=== PATIENT | female | born 1940 | race Caucasian/White ===

== ENCOUNTER → 2016-08-25 | Outpatient (CLI) | payer MEDICARE | END | disposition home or self-care (01) | LOC: LAB.O 12:47 | PROVIDERS: ATTEND Nurse Practitioner Family | DX: N39.0 Urinary tract infection, site not specified (principal) ==

== ENCOUNTER → 2017-02-14 | Outpatient (CLI) | payer MEDICARE | END | disposition home or self-care (01) | LOC: LAB.O 13:50 | PROVIDERS: ATTEND Nurse Practitioner Family | DX: R10.9 Unspecified abdominal pain (principal) ==

== ENCOUNTER → 2017-05-08 | Outpatient (CLI) | payer OTHER | END | disposition home or self-care (01) | LOC: LAB.O 16:50 | PROVIDERS: ATTEND Nurse Practitioner Family | DX: K27.9 Peptic ulcer, site unspecified, unspecified as acute or chronic, without hemorrhage or perforation (principal) ==

== ENCOUNTER → 2017-06-06 | Outpatient (CLI) | payer OTHER | END | disposition home or self-care (01) | LOC: LAB.O 14:10 | PROVIDERS: ATTEND Psychiatry & Neurology Neurology | DX: E53.8 Deficiency of other specified B group vitamins (principal); K50.90 Crohn's disease, unspecified, without complications; E11.9 Type 2 diabetes mellitus without complications; G35 Multiple sclerosis; R53.83 Other fatigue; G61.81 Chronic inflammatory demyelinating polyneuritis; G25.89 Other specified extrapyramidal and movement disorders ==

== ENCOUNTER → 2017-06-13 | Outpatient (CLI) | payer OTHER ==
--- NOTE | 2017-06-13 15:53 | NM ---
EXAM DESCRIPTION: Hepatobiliar w/CCK CLINICAL HISTORY: 76 years, Female, ABD PAIN COMPARISON: FINDINGS: Patient injected with 8.0 mCi technetium 99m mebrofenin. Sequential images of the right upper quadrant show liver intrahepatic ducts, extrahepatic ducts gallbladder and small bowel. Patient injected with 8 ounces of ensure which contains 11 g of fat. No symptoms following the ingestion. Ejection fraction is 99%. IMPRESSION: Normal hepatobiliary scan with ejection fraction . No symptoms following ingestion of the fatty meal Electronically signed by: Jc Kramer MD 06/13/2017 3:52 PM SPECIFICATION WRITER
== END | disposition home or self-care (01) ==
LOC: NM 08:33
PROVIDERS: ATTEND General Practice
DX: R10.9 Unspecified abdominal pain (principal)
CPT/HCPCS: 78227; A9537

== ENCOUNTER 2017-10-22 13:31 | Emergency (ER) | payer OTHER, MEDICAID ==
[2017-10-22 13:48] VITALS: TEMP 97
--- NOTE | 2017-10-22 13:57 | ED.PDOC ---
History of Present Illness - General Chief Complaint: Lower Extremity Injury Stated Complaint: fall Time Seen by Provider: 10/22/17 13:35 Source: patient, RN notes reviewed, EMS notes reviewed Exam Limitations: no limitations - History of Present Illness Initial Comments: Kristan Gramajo 77 y/o female stated that she was on top of stepstool putting up wallpaper inside her bathroom she slipped on the step fell and landed on left side of head and right leg hitting the tub then had sharp headache and dull ache right leg after incident sharp wrist pain.No vomiting,no LOC,no blurry vision,remembers incident. Occurred: just prior to arrival Severity: moderate Injuries/Pain Location: head, lower extremity Reason for Fall: slipped Loss of Consciousness: no loss of consciousness Improving Factors: nothing Worsening Factors: movement Associated Symptoms (Fall): other - see hpi Allergies/Adverse Reactions: Allergies Canagliflozin [From Invokana] Allergy (Verified 10/22/17 13:57) Celecoxib [From Celebrex] Allergy (Verified 10/22/17 14:50) Metformin Allergy (Verified 10/22/17 13:57) Ofloxacin [From Floxin] Allergy (Unverified 03/16/13 21:46) Home Medications: Ambulatory Orders Acetaminophen W/ Codeine [Tylenol W/ CODEINE #3] 1 ea PO Q6HRS PRN #20 Review of Systems - Review of Systems Constitutional: States: no symptoms reported EENTM: States: no symptoms reported Respiratory: States: no symptoms reported Cardiology: States: no symptoms reported Gastrointestinal/Abdominal: States: no symptoms reported Musculoskeletal: States: see HPI Neurological: States: see HPI All other Systems: Reviewed and Negative, No Change from Baseline Past Medical History (General) - Patient Medical History Hx Hypertension: Yes Hx Diabetes: Yes Surgical History: other - hysterectomy,orif right wrist,left shoulder,foot - Vaccination History Hx Influenza Vaccination: Yes Hx Pneumococcal Vaccination: Yes - Social History Hx Tobacco Use: No Hx Alcohol Use: No Hx Physical Abuse: No Hx Emotional Abuse: No - Activities of Daily Living Grooming Ability: Independent Eating (Feeding) Ability: Independent Toileting Ability: Independent Physical Exam - Physical Exam General Appearance: Alert, Comfortable, No apparent distress, Other - tenderness left side scalp Head Injury: other - tenderness with scalp swelling [id number] left side scalp Eye Exam: bilateral normal ENT Exam: hearing grossly normal, no evidence of ENT injury, no dental injury Peripheral Pulses: radial,right: 2+, radial,left: 2+ Cardiovascular/Respiratory: regular rate, rhythm, normal peripheral pulses Gastrointestinal/Abdominal: non tender, soft, no organomegaly Back Exam: no CVA tenderness, no vertebral tenderness Extremity Exam: bony-point tenderness - right ankle Neurologic: hospital insurance representative II-XII nml as tested, no motor/sensory deficits, alert, normal mood/affect, oriented x 3 Skin Exam: normal color, warm/dry - Leonor Coma Score Best Eye Response ([place]): (4) open spontaneously Best Verbal Response ([place]): (5) oriented Best Motor Response ([place]): (6) obeys commands Progress - Progress Progress: 10/22/17 14:46 Vital Signs - 8 hr 10/22/17 13:36 Temperature 97.0 F L Pulse Rate [ 72 pulse ox] Respiratory 20 Rate Blood Pressure 158/81 [Left Arm] O2 Sat by Pulse 95 Oximetry - EKG/XRAY/CT XRAY: ankle - no fracture CT Ordered: Yes - head/c-spine-no fracture or acute abnormalities Departure - Departure Clinical Impression: Fall (on) (from) other stairs and steps, initial encounter Contusion of head Qualifiers: Encounter type: initial encounter Contusion of head detail: scalp Qualified Code(s): S00.03XA - Contusion of scalp, initial encounter Ankle pain, right Qualifiers: Chronicity: acute Qualified Code(s): M25.571 - Pain in right ankle and joints of right foot Wrist pain, acute Qualifiers: Laterality: left Qualified Code(s): M25.532 - Pain in left wrist Time of Disposition: 16:54 Disposition: Discharge to Home or Self Care Condition: Fair Departure Forms: ED Discharge - Pt. Copy, Patient Portal Self Enrollment Instructions: DI for Contusion, DI for Closed Head Injury, Head Injury ( Alternative Therapy) Referrals: Mago Perera NP [Primary Care Provider] - 1-2 Weeks Prescriptions: Acetaminophen W/ Codeine [Tylenol W/ CODEINE #3] 1 ea PO Q6HRS PRN #20 PRN Reason: Pain Home Medications: Ambulatory Orders Acetaminophen W/ Codeine [Tylenol W/ CODEINE #3] 1 ea PO Q6HRS PRN #20 Additional Instructions: Return to ER as needed
[2017-10-22] MEDS ORDERED: fentaNYL CITRATE INJ 50 MCG/ML AMP IV ONE (13:58)
--- NOTE | 2017-10-22 15:20 | RAD ---
EXAM DESCRIPTION: Ankle,Right 2 Views CLINICAL HISTORY: pain COMPARISON: None. IMPRESSION: 3 views of the right ankle shows diffuse osteopenia of the osseous structures without acute appearing fracture, focal bone destruction, or joint dislocation. The ankle mortise appears maintained. Osseous structures are diffusely osteopenic. Moderate plantar enthesophyte of the calcaneus is seen. Electronically signed by: Rigo Peter MD 10/22/2017 3:19 PM CDT
--- NOTE | 2017-10-22 15:23 | CT ---
EXAM DESCRIPTION: Head CLINICAL HISTORY: pain COMPARISON: December 18, 2013 TECHNIQUE: Noncontrast transaxial CT images of the head are obtained from base to vertex. This exam was performed according to our departmental dose-optimization program, which includes automated exposure control, adjustment of the mA and/or kV according to patient size and/or use of iterative reconstruction technique. FINDINGS: The midline structures are not displaced. Sulci are age-appropriate. There are areas of decreased attenuation in the periventricular white matter and the white matter of the centrum semiovale. There is no evidence of mass, mass-effect, hydrocephalus, or acute intracranial hemorrhage. No abnormal extra axial fluid collection is seen. Bone windows show no evidence of depressed skull fracture. Mild scalp soft tissue fat stranding in the left parietal region is seen. Moderate calcifications of the intracranial carotid arteries are seen. The visualized paranasal sinuses are unremarkable. IMPRESSION: 1. Age-appropriate atrophy with evidence of old small vessel ischemic type changes seen. 2. Small area of probable scalp soft tissue hematoma or inflammation in the left parietal region.. Electronically signed by: Rigo Peter MD 10/22/2017 3:21 PM CDT
--- NOTE | 2017-10-22 15:30 | RAD ---
EXAM DESCRIPTION: Tibia/Fibula,Right CLINICAL HISTORY: pain COMPARISON: None. IMPRESSION: 2 views of the right tibia and fibula show diffuse osteopenia of the osseous structures without evidence of acute fracture, focal bone destruction, or joint dislocation. Total knee arthroplasty is identified with cement fixation of an intramedullary component of the proximal tibia. No complicating features are identified. The femoral component is incompletely visualized on this exam of the tibia and fibula. Electronically signed by: Rigo Peter MD 10/22/2017 3:28 PM CDT
--- NOTE | 2017-10-22 15:31 | CT ---
EXAM DESCRIPTION: Cervical Spine CLINICAL HISTORY: pain COMPARISON: None Available. TECHNIQUE: Cervical CT is performed with thin-section axial imaging. MPRs are created and reviewed as well. FINDINGS: Axial bone window images reveal intact ring of C1. No abnormal widening of the atlantodens interval. No fracture of the vertebral bodies or transverse processes or posterior elements. Lung apices appear clear. No cervical mass or adenopathy. Sagittal reformatted images show normal alignment of vertebral bodies and facets. No jumped facet or facet fracture. Normal craniocervical alignment. No prevertebral soft tissue swelling. No avulsion of the spinous processes. Spondylosis: Moderately severe facet spurring is seen on the right at C4-5 and bilaterally at C5-6. Marked facet hypertrophic changes are seen on the right at C7-T1. Posterior disc/osteophyte complexes are not prominent. No significant spinal stenosis. Advanced degenerative changes are seen at the atlantodens interval. Coronal reformatted images show normal atlantooccipital and atlantoaxial alignment. The base of the dens is intact as is the body of C2. Intact lateral masses. IMPRESSION: Negative for fracture or posttraumatic subluxation. Degenerative changes as described. This exam was performed according to our departmental dose-optimization program, which includes automated exposure control, adjustment of the mA and/or kV according to patient size and/or use of iterative reconstruction technique. Total DLP equals 425.79 mGycm. Electronically signed by: Ottoniel Au MD 10/22/2017 3:30 PM CDT
--- NOTE | 2017-10-22 15:32 | RAD ---
EXAM DESCRIPTION: Hand,Right 3 Views CLINICAL HISTORY: pain COMPARISON: None. IMPRESSION: 3 views of the right hand shows diffuse osteopenia of the osseous structures. Severe joint space narrowing of the DIP joints is seen with [id number] joint line osteophytes system with osteoarthritic changes most significantly involving the second finger DIP joint. 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 Volar plate and screw fixation of the distal radius is seen. There is 3 mm of ulnar negative variance. Mild widening of the scapholunate joint is incidentally noted. Electronically signed by: Rigo Peter MD 10/22/2017 3:30 PM CDT
[2017-10-22 17:12] VITALS: O2SAT 98
[2017-10-22 17:13] VITALS: BP 130/61
== END 2017-10-22 17:05 | disposition home or self-care (01) ==
LOC: ER 13:31
DX: S00.03XA Contusion of scalp, initial encounter (principal); M25.571 Pain in right ankle and joints of right foot; M25.532 Pain in left wrist; I10 Essential (primary) hypertension; W11.XXXA Fall on and from ladder, initial encounter; Y92.002 Bathroom of unspecified non-institutional (private) residence as the place of occurrence of the external cause

== ENCOUNTER 2018-03-18 22:38 | Emergency (ER) | payer OTHER, MEDICAID ==
[2018-03-18] MEDS ORDERED: ONDANSETRON INJ 4 MG/2 ML VIAL ONE (23:09)
[2018-03-18] MEDS: ONDANSETRON INJ 4 MG/2 ML VIAL IV ONE (23:10)
--- NOTE | 2018-03-18 23:27 | ED.PDOC ---
History of Present Illness - General Chief Complaint: GI Problem Stated Complaint: n/v/d Time Seen by Provider: 03/18/18 23:23 Information Source: patient, family Exam Limitations: no limitations - History of Present Illness Initial Comments: patient comes in today for severe nausea. Patient has been dealing with difficulties with her stomach that include burning, cramping, nausea and emesis for the past 2 years. She's been diagnosed with gastroparesis and is currently under care of gastroenterology. She recently had scopes that showed no ulcerations and no masses in the colon. Patient states she was scheduled to start Reglan but has not started the medication yet this time. Today at 4 PM she started having significant nausea and just feeling horrible. Patient states she has fever of 101 on arrival to the emergency room. She's had a little bit of nasal drainage but no congestion, no cough, no shortness of breath. She did notice some dysuria and some increased hesitancy today as well. Patient's last bowel movement was 2-3 days ago that's normal for her as she alternates between constipation and diarrhea. Patient denies any emesis yet today but could not take the nausea. Patient denies chest pain or shortness of breath. Patient has a history of diabetes mellitus, hypertension, and hyperlipidemia. Abdominal Pain Onset Location: generalized abdomen Pain Radiation: no radiation Quality: mild, dull Timing/Duration: 4-6 hours Improving Factors: nothing Worsening Factors: nothing Associated Symptoms: fever/chills, nausea/vomiting Review of Systems - Review of Systems Constitutional: States: fever, malaise EENTM: States: throat swelling, other - clear nasal drainage. Denies: eye pain , nose congestion Respiratory: States: no symptoms reported. Denies: cough, short of breath, wheezing Cardiology: States: no symptoms reported. Denies: chest pain, edema, palpitations Gastrointestinal/Abdominal: States: abdominal pain, nausea. Denies: constipation, diarrhea, vomiting Genitourinary: States: dysuria, other - hesitancy Musculoskeletal: States: no symptoms reported Skin: States: no symptoms reported Neurological: States: no symptoms reported Past Medical History (General) - Patient Medical History Hx Hypertension: Yes Hx Diabetes: Yes Hx Gastroesophageal Reflux: Yes Surgical History: Hysterectomy - Vaccination History Hx Tetanus, Diphtheria Vaccination: Yes Hx Influenza Vaccination: Yes Hx Pneumococcal Vaccination: Yes - Social History Hx Tobacco Use: No Hx Alcohol Use: No Hx Substance Use: No Hx Substance Use Treatment: No Hx Depression: No Hx Physical Abuse: No Hx Emotional Abuse: No - Triage Comment ED Triage Comment: Pt reports she started having N/V/D since earlier in the evening. Pt stated she has been having trouble with her bowels. Pt was seen by a Gastro specialist today in evening. Pt is a diabetic. Pt last ate a noon. Pt has been vomiting since 4p.m. Pt reports spouse was sick with N/V about 2 weeks ago. Family Medical History - Family History Mother Family History: Unknown Physical Exam - Physical Exam General Appearance: Ill Appearing Eyes, Ears, Nose, Throat Exam: PERRL/EOMI, normal ENT inspection, TMs normal, pharynx normal Neck: non-tender, full range of motion, supple Respiratory: chest non-tender, lungs clear, normal breath sounds Cardiovascular/Chest: normal peripheral pulses, regular rate, rhythm, no edema, no gallop, no JVD, no murmur Peripheral Pulses: No deficit Gastrointestinal/Abdominal: normal bowel sounds, soft, other - TTP periumbilical area, no rebound no guarding Extremity: non-tender Neurologic: alert, oriented x 3 Progress - Progress Progress: 03/18/18 23:43 discussed with patient abnormal EKG. However, her blood pressure is running low between 120 and 70s and last EKG was in 2013 here for comparison. I am hesitant to give her nitro at this time as her symptoms have resolved with zofran and reglan and i am concerned she has acute infection. We discussed with patient and have decided to given ASA, await cardiac enzyme results, and monitor closely. 03/19/18 01:56 patient feels completely better. she was having some symptoms of UTI this morning so we have started keflex 500 mg BID x 3 days first dose here. Cardiac enzymes more than 4 hours after symptoms started were negative and she is asymptomatic. She understands that EKG was not normal and should be followed up for possible chemical stress test/cards consult. 03/19/18 01:59 - Results/Orders Results/Orders: 03/19/18 00:13 KCl 20 Meq/Ns [NS W/ KCL 20 meq/Liter] 1,000 ml IVS .QD 03/19/18 00:15 EKG STAT Laboratory Results WBC 13.0 K/mm3 (4.8-10.8) H 03/18/18 23: RBC 5.34 M/mm3 (4.20-5.40) 03/18/18: Hgb 15.0 gm/dL (12.0-16.0) 03/18/18: Hct 45.8 % (36.0-47.0) 03/18/18: MCV 85.9 fl (81.0-99.0) 03/18/18: MCH 28.2 pg (27.0-31.0) 03/18/18: MCHC 32.8 g/dL (33.0-37.0) L 03/18/18: RDW 13.8 % (11.5-14.5) 03/18/18: Plt Count 229 K/mm3 (130-400) 03/18/18: MPV 9.7 fl (7.40-10.4) 03/18/18: Absolute Neuts (auto) 11.00 K/uL (1.8-6.8) H 03/18/18: Absolute Lymphs (auto) 1.30 K/uL (1.0-3.4) 03/18/18: Absolute Monos (auto) 0.50 K/uL (0.2-0.8) 03/18/18: Absolute Eos (auto) 0.20 K/uL (0.0-0.4) 03/18/18: Absolute Basos (auto) 0.10 K/uL (0.0-0.1) 03/18/18: Neutrophils % 84.3 % (42.0-78.0) H 03/18/18: Lymphocytes % 9.8 % (20.0-50.0) L 03/18/18: Monocytes % 4.2 % (2.0-9.0) 03/18/18: Eosinophils % 1.2 % (1.0-5.0) 03/18/18: Basophils % 0.5 % (0.0-2.0) 03/18/18: Sodium 138 mmol/L (135-145) 03/18/18 23:27 Potassium 2.9 mmol/L (3.6-5.0) L 03/18/18 23: Chloride 98 mmol/L (101-111) L 03/18/18 23: Carbon Dioxide 28 mmol/L (21-31) 03/18/18 23: Anion Gap 14.9 (12-18) 03/18/18 23:27 BUN 31 mg/dL (7-18) H 03/18/18 23: Creatinine 1.20 mg/dL (0.6-1.3) 03/18/18 23: BUN/Creatinine Ratio 25.8 (10-20) H 03/18/18 23: Random Glucose 172 mg/dL (70-105) H 03/18/18: Serum Osmolality 286.3 mOsm/L (275-295) 03/18/18 23: Lactic Acid 1.6 mmol/L (0.5-2.2) 03/18/18 00:17 Calcium 9.1 mg/dL (8.4-10.2) 03/18/18 23: Total Bilirubin 0.7 mg/dL (0.2-1.0) 03/18/18 23: AST 23 IU/L (10-42) 03/18/18 23: ALT 14 IU/L (10-60) 03/18/18 23: Alkaline Phosphatase 59 IU/L (42-121) 03/18/18: Troponin I < 0.02 ng/mL (0.01-0.05) 03/18/18 23: Serum Total Protein 7.5 gm/dL (6.4-8.2) 03/18/18 23: Albumin 4.2 g/dl (3.2-5.5) 03/18/18 23: Globulin 3.3 gm/dL (2.3-3.5) 03/18/18 23: Albumin/Globulin Ratio 1.3 (1.1-1.9) 03/18/18 23: Urine Color Yellow (Yellow) 03/19/18 01:49 Urine Appearance Clear (Clear) 03/19/18 01:49 Urine pH 5.5 (4.5-7.8) 03/19/18 01:49 Ur Specific [place] 1.025 (1.005-1.030) 03/19/18 01:49 Urine Protein Negative mg/dL 03/19/18 01:49 Urine Glucose (UA) Negative mg/dL (Negative) 03/19/18 01:49 Urine Ketones Negative mg/dL (NEGATIVE) 03/19/18 01:49 Urine Blood Trace-lysed (Negative) H 03/19/18 01:49 Urine Nitrite Negative 03/19/18 01:49 Urine Bilirubin Negative (NEGATIVE) 03/19/18 01:49 Urine Urobilinogen 1.0 mg/dL (0.2-1.0) 03/19/18 01:49 Ur Leukocyte Esterase Small (Negative) H 03/19/18 01:49 Urine RBC 3-5 /hpf H 03/19/18 01:49 Urine WBC 5-10 /hpf H 03/19/18 01:49 Ur Epithelial Cells 5-10 /hpf 03/19/18 01:49 Urine Bacteria 1+ 03/19/18 01:49 - EKG/XRAY/CT EKG: Sinus, nonspecific ST T wave Chg, Abnormal Q waves Comments: flipped T waves in the lateral leads with possible lateral injury pattern Departure - Departure Clinical Impression: Gastroparesis, Hypokalemia Urinary tract infection Qualifiers: Urinary tract infection type: acute cystitis Hematuria presence: without hematuria Qualified Code(s): N30.00 - Acute cystitis without hematuria Disposition: Discharge to Home or Self Care Condition: Fair Departure Forms: ED Discharge - Pt. Copy, Patient Portal Self Enrollment Referrals: Mago Perera NP [Primary Care Provider] - 1-2 Weeks Home Medications: Ambulatory Orders Acetaminophen W/ Codeine [Tylenol W/ CODEINE #3] 1 ea PO Q6HRS PRN #20 Cephalexin Monohydrate [Keflex] 500 mg PO TID 3 Days #9 cap 03/19/18 Additional Instructions: follow up with PCP in 2-3 days to recheck K and follow up on abnormal EKG. enzymes were negative here. Return to ER for chest pain, diaphoresis, shortness of breath, or weakness.
[2018-03-18] MEDS: METOCLOPRAMIDE HCL INJ 10 MG/2 ML VIAL IV ONE (23:33)
[2018-03-18] MEDS ORDERED: SODIUM CHLORIDE 0.9% 1000ML 1,000 ML IVS ONE (23:41)
[2018-03-18] MEDS ORDERED: KCL 20 MEQ/NS 1,000 ML IVS ONE (23:57)
[2018-03-19] MEDS: KCL 20 MEQ/NS 1,000 ML IVS PRN (00:14)
[2018-03-19] MEDS: ASPIRIN (CHEWABLE) 81 MG TAB PO ONE (00:37)
[2018-03-19] MEDS: ACETAMINOPHEN 500 MG TAB PO ONE (00:37)
[2018-03-19] MEDS: POTASSIUM CHLORIDE 20mEq 10ML VIAL IV ONE (00:43)
[2018-03-19] MEDS: CEPHALEXIN MONOHYDRATE 500 MG CAP PO ONE (02:06)
[2018-03-19 02:20] VITALS: BP 95/53; TEMP 99.1; O2SAT 94
== END 2018-03-19 02:20 | disposition home or self-care (01) ==
LOC: ER 22:38
DX: E11.43 Type 2 diabetes mellitus with diabetic autonomic (poly)neuropathy (principal); K31.84 Gastroparesis; N30.00 Acute cystitis without hematuria; E87.6 Hypokalemia; R94.31 Abnormal electrocardiogram [ECG] [EKG]; K21.9 Gastro-esophageal reflux disease without esophagitis; I10 Essential (primary) hypertension; E78.5 Hyperlipidemia, unspecified
CPT/HCPCS: 36415; 80053; 81001; 83605; 84484; 85025; 87040; 87086; 87804; 93005; J2405; J2765; J3480

== ENCOUNTER → 2019-03-11 | Outpatient (CLI) | payer OTHER, MEDICAID ==
--- NOTE | 2019-03-12 11:02 | MRI ---
EXAM DESCRIPTION: Cervical Spine CLINICAL HISTORY: DISC DEGENERATION. Bilateral shoulder pain, neck pain. COMPARISON: None Available. TECHNIQUE: Multisequence multiplanar MRI of the cervical spine was performed without intravenous contrast. FINDINGS: Trace anterolisthesis of C6 on C7. The cervical spinal alignment is otherwise intact. The vertebral body heights are relatively maintained. No displaced fracture or dislocation is seen. The cranial cervical junction is intact. The cervical cord is normal in caliber and signal intensity. C2-3: No significant central canal stenosis or neuroforaminal narrowing. C3-4: No significant central canal stenosis or neuroforaminal narrowing. C4-C5: Mild bilateral uncinate process hypertrophy with no significant central canal stenosis and mild left neuroforaminal narrowing. C5-C6: Minimal posterior disc osteophyte with mild bilateral uncinate process hypertrophy with no significant central canal stenosis or neuroforaminal narrowing. C6-C7: Small posterior disc osteophyte (approximately 2 mm) and mild bilateral uncinate process hypertrophy results in slight effacement of the ventral cord without significant central canal stenosis and mild left neuroforaminal narrowing. C7-T1: No significant central canal stenosis or neuroforaminal narrowing. The visualized soft tissues are within normal limit. IMPRESSION: 1. Mild multilevel cervical spine degenerative changes. 2. C6-C7 small posterior disc osteophyte causing mild effacement of the ventral cord and mild central canal stenosis. No high-grade central canal stenosis at any cervical level. 3. Mild neural foraminal narrowing as above. Electronically signed by: Dioni Dutton DO 03/12/2019 11:00 AM CDT
== END ==
LOC: MRI 13:00
PROVIDERS: ATTEND Nurse Practitioner Family
DX: M50.30 Other cervical disc degeneration, unspecified cervical region (principal); M25.78 Osteophyte, vertebrae

== ENCOUNTER → 2019-05-20 | Outpatient (CLI) | payer OTHER, MEDICAID ==
--- NOTE | 2019-05-21 09:48 | MRI ---
EXAM DESCRIPTION: Brain w/o Contrast: MRI. CLINICAL HISTORY: VERTIGO COMPARISON: None. TECHNIQUE: Multiplanar, high-field MRI unit, multiple diffusion sequences, multiple conventional sequences without contrast. FINDINGS: Small foci of hyperintense FLAIR and T2-weighted signal in the subcortical white matter in the bilateral frontal lobes and also in the periventricular white matter abutting the frontal horns. 2 additional subcortical white matter lesions in the more superior supraventricular right frontal lobe near the vertex.. No hemorrhage, no cerebral edema, no mass-effect. Normal signal in the bilateral basal ganglia. Normal signal in the brainstem and cerebellar hemispheres. No hemorrhage, no parenchymal edema, no mass-effect. Concordance of the diffusion and non-diffusion sequences with no diffusion restriction. Cortical sulci, ventricles, and other CSF spaces, and the subdural spaces are slightly prominent for patient's age. No effacement or displacement. No midline shift. No extra-axial hemorrhage. Normal flow signal void in the major vessels of the [employer], and the venous sinuses. IACs are symmetric bilaterally. No fluid in the bilateral mastoid air cells. No mass effect in the bilateral cerebellopontine angles. Pituitary gland occupies less than half of the sella. Base of the cerebellar tonsils is just above the foramen magnum. Minimal mucoperiosteal thickening in the Paranasal sinuses. Minimal edema in the bilateral optic nerve sheaths abutting the optic globes. The bony calvarium is intact. IMPRESSION: 1. Bilateral subcortical white matter lesions in the frontal lobes and also in the periventricular white matter abutting the frontal horns of the lateral ventricles. Not associated with hemorrhage, mass effect, or diffusion restriction. 2. No diffusion restriction seen elsewhere in the brain with no evidence of significant ischemia or infarction, acute or subacute. 3. Partially empty sella and edema in the distal optic nerve sheaths abutting the optic globes. This can be seen with obesity, excessive CSF, migraine headaches, pseudotumor cerebri. Electronically signed by: Lane Zhou MD 05/21/2019 9:46 AM ELECTION SUPERVISOR
== END | disposition home or self-care (01) ==
LOC: MRI 13:00
PROVIDERS: ATTEND Nurse Practitioner Family
DX: R42 Dizziness and giddiness (principal)

== ENCOUNTER 2019-06-08 05:04 | Day surgery (SDC) | payer OTHER, MEDICAID ==
[2019-06-08] MEDS ORDERED: MOXIFLOXACIN HCL (OPHTH) 1 DROP DROPS ONE (05:46)
[2019-06-08] MEDS ORDERED: PROPARACAINE 0.5% OPHTH SOL 15 ML BTTL ONE (05:46)
[2019-06-08] MEDS ORDERED: TROP 1%/CYCLOPEN 1%/PHENYL 2% DROPS ONE (05:47)
== END 2019-06-08 07:15 | disposition home or self-care (01) ==
LOC: AMB 05:04
PROVIDERS: ATTEND Ophthalmology
DX: E11.36 Type 2 diabetes mellitus with diabetic cataract (principal); H26.491 Other secondary cataract, right eye; I10 Essential (primary) hypertension

== ENCOUNTER 2020-04-13 10:18 | Emergency (ER) | payer OTHER, MEDICAID ==
[2020-04-13] MEDS ORDERED: SODIUM CHLORIDE 0.9% 1000ML 1,000 ML IVS ONE (11:02)
[2020-04-13] MEDS ORDERED: ONDANSETRON INJ 4 MG/2 ML VIAL IV ONE (11:02)
[2020-04-13] MEDS ORDERED: SODIUM CHLORIDE 0.9% (FLUSH) 10 ML SYG IV PRN ×2 (11:02)
--- NOTE | 2020-04-13 11:33 | RAD ---
EXAM DESCRIPTION: Chest,1 View CLINICAL HISTORY: 79 years Female, fatigue COMPARISON: Previous chest x-ray December 18, 2013 TECHNIQUE: AP portable chest. FINDINGS: Heart size is large with normal pulmonary vascularity. Reverse left shoulder arthroplasty. No consolidating infiltrate. Linear scarring in the lingula. Patchy increased density in the left lung base may be volume loss. No pulmonary mass or worrisome nodule. No pneumothorax or pleural effusion. Bones are unremarkable. IMPRESSION: Partial volume loss in the lingula and left lung base. Large heart without congestive failure. Electronically signed by: Ottoniel Au MD 04/13/2020 11:31 AM CDT
--- NOTE | 2020-04-13 12:00 | ED.PDOC ---
History of Present Illness - General Chief Complaint: General Stated Complaint: diarrhea, abdominal pain Time Seen by Provider: 04/13/20 11:01 Source: patient, RN notes reviewed, Vital Signs reviewed, family Exam Limitations: no limitations - History of Present Illness Initial Comments: Patient is a 79-year-old white female who presents with complaints of lower abdominal pain with associated nausea and diarrhea for the last 2 to 3 days. This pain is cramping in nature. It is worsening. There is no radiation of the pain. Patient denies any fever or chills. Timing/Duration: getting worse, other - 2-3 days Severity: moderate Improving Factors: nothing Worsening Factors: eating Associated Symptoms: loss of appetite, malaise, nausea/vomiting - nausea only. +Diarrhea, weakness Allergies/Adverse Reactions: Allergies Canagliflozin [From Invokana] Allergy (Verified 04/13/20 10:54) Celecoxib [From Celebrex] Allergy (Verified 04/13/20 10:54) Metformin Allergy (Verified 04/13/20 10:54) Ofloxacin [From Floxin] Allergy (Verified 04/13/20 10:54) Rosuvastatin [From Crestor] Adverse Reaction (Verified 04/13/20 10:54) Home Medications: Ambulatory Orders Amlodipine Besylate 1 tablet PO DAILY 06/02/19 Gabapentin 1 tablet PO TID 06/02/19 LORazepam [Ativan] 1 tablet PO DAILY 06/02/19 Metoclopramide HCl 1 tablet PO BID 06/02/19 Metoprolol Succinate [Metoprolol Succinate ER] 50 mg PO DAILY 06/02/19 Pravastatin Sodium 1 tablet PO DAILY 06/02/19 Trazodone HCl [Trazodone Hydrochloride] 50 mg PO DAILY 06/02/19 Cyclobenzaprine HCl [Flexeril] 10 mg PO PRN PRN 06/08/19 Duloxetine HCl 30 mg PO DAILY 06/08/19 HYDROcodone 10MG/APAP 325MG [Michael 10325] 1 tab PO PRN 06/08/19 Hydrochlorothiazide 25 mg PO DAILY 06/08/19 Insulin Glargine [Toujeo Solostar] 40 units SC DAILY 06/08/19 Pantoprazole Sodium 40 mg PO DAILY 06/08/19 Ondansetron [Ondansetron Odt] 4 mg PO Q6H #20 tab 04/13/20 Review of Systems - Review of Systems Constitutional: States: see HPI, malaise, weakness. Denies: chills, fever EENTM: States: no symptoms reported. Denies: eye pain, blurred vision, double vision Respiratory: States: no symptoms reported. Denies: cough, short of breath, stridor, wheezing Cardiology: States: see HPI. Denies: chest pain, palpitations, syncope Gastrointestinal/Abdominal: States: see HPI, abdominal pain, diarrhea, nausea. Denies: vomiting Genitourinary: States: no symptoms reported. Denies: dysuria, frequency Musculoskeletal: States: no symptoms reported. Denies: back pain, joint pain, neck pain Skin: States: no symptoms reported. Denies: change in color, rash Neurological: States: see HPI, weakness. Denies: headache, numbness, paresthesia, tingling, tremors Endocrine: States: no symptoms reported. Denies: increased hunger, increased thirst, increased urine Hematologic/Lymphatic: States: no symptoms reported. Denies: blood clots, easy bleeding All other Systems: No Change from Baseline Past Medical History (General) - Patient Medical History Hx Congestive Heart Failure: No Hx Hypertension: Yes Hx Diabetes: Yes Hx Gastroesophageal Reflux: Yes Hx MRSA: No Surgical History: appendectomy, cholecystectomy, Hysterectomy - Vaccination History Hx Tetanus, Diphtheria Vaccination: Yes Hx Influenza Vaccination: Yes Hx Pneumococcal Vaccination: Yes - Social History Hx Tobacco Use: No Hx Alcohol Use: No Hx Substance Use: No Hx Substance Use Treatment: No Hx Depression: No Hx Physical Abuse: No Hx Emotional Abuse: No - Activities of Daily Living Hospice Agency (if applicable):: None - Female History Patient : No Family Medical History - Family History Mother Family History: Unknown Physical Exam - Physical Exam General Appearance: Alert, Anxious, Obvious distress, Ill Appearing, Well Developed, Well Groomed, Well Hydrated, Well Nourished Eye Exam: bilateral normal Ears, Nose, Throat: hearing grossly normal, normal ENT inspection Neck: non-tender, full range of motion, supple Respiratory: chest non-tender, lungs clear, normal breath sounds, no respiratory distress, no accessory muscle use Cardiovascular/Chest: normal peripheral pulses, regular rate, rhythm, no edema, no gallop, no JVD Peripheral Pulses: radial,right: 2+, radial,left: 2+ Gastrointestinal/Abdominal: normal bowel sounds, non tender, soft, no organomegaly, no pulsatile mass Back Exam: normal inspection, no CVA tenderness, no vertebral tenderness Extremity: normal range of motion, non-tender, normal inspection, no pedal edema 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 04/13/20 13:32 Patient is markedly improved after IV fluids and IV Zofran. CT scan is rel atively unremarkable. Lab work does not show significant infection. Plan on discharge home with a prescription for Zofran and follow-up with PCP in the next 2 to 3 days. I discussed this with the patient and her daughter and they voiced understanding and agreement with the plan of care. Nayan Rodriguez M.D. #[id number] - Results/Orders Results/Orders: 04/13/20 11:02 IV Care:Saline Lock per Protoc QSHIFT IV Care:Saline Lock per Protoc QSHIFT Telemetry .ONCE Sodium Chloride 0.9% (Flush) [Saline Flush Syringe] 10 ml IV PRN PRN Sodium Chloride 0.9% (Flush) [Saline Flush Syringe] 10 ml IV PRN PRN EKG Stat Pulse Ox Stat URINALYSIS Stat 04/13/20 11:15 EKG STAT 04/13/20 11:58 Abdomen/Pelvis w/Contrast [CT] Stat 04/13/20 11:59 Hold Metformin x 48Hrs [id number] Laboratory Results - last 24 hr 04/13/20 04/13/20 04/13/20 10:50 10:50 10:50 WBC 4.9 Cancelled RBC 4.73 Cancelled Hgb 13.9 Cancelled Hct 40.7 Cancelled MCV 85.9 Cancelled MCH 29.3 Cancelled MCHC 34.1 Cancelled RDW 13.7 Cancelled Plt Count 147 Cancelled MPV 9.4 Cancelled Absolute Neuts (auto) 3.40 Cancelled Absolute Lymphs (auto) 1.10 Cancelled Absolute Monos (auto) 0.40 Cancelled Absolute Eos (auto) 0.10 Cancelled Absolute Basos (auto) 0.00 Cancelled Neutrophils % 70.1 Cancelled Lymphocytes % 21.4 Cancelled Monocytes % 7.1 Cancelled Eosinophils % 1.0 Cancelled Basophils % 0.4 Cancelled Differential Comment Cancelled RBC Morphology Cancelled PT 9.8 INR < 1.00 PTT (SP) 22.7 Sodium 136 Potassium 3.8 Chloride 96 L Carbon Dioxide 26 Anion Gap 17.8 BUN 14 Creatinine 0.93 BUN/Creatinine Ratio 15.1 Random Glucose 198 H Serum Osmolality 278.0 Calcium 9.1 Magnesium 1.7 L Total Bilirubin 0.8 Direct Bilirubin 0.1 Indirect Bilirubin 0.7 AST 29 ALT 19 Alkaline Phosphatase 59 Creatine Kinase 32 CK-MB (CK-2) 1.0 CK-MB (CK-2) % Not Reportable Troponin I < 0.02 B-Natriuretic Peptide 50.0 Serum Total Protein 7.4 Albumin 3.9 Lipase 34 EXAM DESCRIPTION: Chest,1 View CLINICAL HISTORY: 79 years Female, fatigue COMPARISON: Previous chest x-ray December 18, 2013 TECHNIQUE: AP portable chest. FINDINGS: Heart size is large with normal pulmonary vascularity. Reverse left shoulder arthroplasty. No consolidating infiltrate. Linear scarring in the lingula. Patchy increased density in the left lung base may be volume loss. No pulmonary mass or worrisome nodule. No pneumothorax or pleural effusion. Bones are unremarkable. IMPRESSION: Partial volume loss in the lingula and left lung base. Large heart without congestive failure. Electronically signed by: Ottoniel Au MD 04/13/2020 11:31 EKG performed 13 April 2020 at 1031 hrs.: Normal sinus rhythm at 66 bpm, left axis deviation, right bundle branch block, T wave abnormality with flipped T waves laterally concerning for ischemia, abnormal EKG. No comparison EKG available at this time. EXAM DESCRIPTION: Abdomen/Pelvis w/Contrast CLINICAL HISTORY: lower abdominal pain with diarrhea. COMPARISON: None. TECHNIQUE: Postcontrast CT images of the abdomen and pelvis are obtained using standard imaging protocol. This exam was performed according to our departmental dose-optimization program, which includes automated exposure control, adjustment of the mA and/or kV according to patient size and/or use of iterative reconstruction technique . FINDINGS: Visualized lung bases show mild interstitial thickening in the dependent portion of the lower lobes likely representing atelectasis although developing infil trates can have a similar appearance. Liver, spleen, pancreas, adrenal glands, and gallbladder are unremarkable. Moderate vascular calcifications are seen. No nephrolithiasis. No ureteral calcification or obstruction. Exophytic cortical cyst of the anterior upper pole left kidney measures 17 mm. Urinary bladder is unremarkable. Surgical absence of the uterus. The ovaries are not identified. The appendix is not identified. Small hiatal hernia. Stomach is poorly distended. No small bowel obstruction or bowel wall thickening Mild scattered diverticuli of the transverse colon without associated inflammatory changes or fluid collections. Small fat-containing umbilical hernia with small right greater than left fat-containing inguinal hernias. No pathologic lymphadenopathy. No free intraperitoneal air or abnormal drainable fluid collections. Moderate degenerative changes of the spine. IMPRESSION: No acute findings on CT of the abdomen and pelvis. Mild colon diverticulosis without CT evidence of diverticulitis. Electronically signed by: Rigo Peter MD 04/13/2020 12:45 PM CDT Vital Signs 04/13/20 04/13/20 10:36 11:12 Temperature 97.6 F Pulse Rate [ 64 brachial] Respiratory 20 Rate Blood Pressure 133/78 [Left Arm] O2 Sat by Pulse 95 93 L Oximetry Departure - Departure Clinical Impression: Gastroenteritis, Dehydration, Nausea Time of Disposition: 13:34 Disposition: Discharge to Home or Self Care Condition: Good Departure Forms: ED Discharge - Pt. Copy, Patient Portal Self Enrollment Instructions: Viral Gastroenteritis, Adult (DC) Diet: full liquid diet Activity: increase activity as tolerated Referrals: LOREN CARTY [Primary Care Provider] - 1-5 Days Prescriptions: Ondansetron [Ondansetron Odt] 4 mg PO Q6H #20 tab Home Medications: Ambulatory Orders Amlodipine Besylate 1 tablet PO DAILY 06/02/19 Gabapentin 1 tablet PO TID 06/02/19 LORazepam [Ativan] 1 tablet PO DAILY 06/02/19 Metoclopramide HCl 1 tablet PO BID 06/02/19 Metoprolol Succinate [Metoprolol Succinate ER] 50 mg PO DAILY 06/02/19 Pravastatin Sodium 1 tablet PO DAILY 06/02/19 Trazodone HCl [Trazodone Hydrochloride] 50 mg PO DAILY 06/02/19 Cyclobenzaprine HCl [Flexeril] 10 mg PO PRN PRN 06/08/19 Duloxetine HCl 30 mg PO DAILY 06/08/19 HYDROcodone 10MG/APAP 325MG [Michael 10/325] 1 tab PO PRN 06/08/19 Hydrochlorothiazide 25 mg PO DAILY 06/08/19 Insulin Glargine [Toujeo Solostar] 40 units SC DAILY 06/08/19 Pantoprazole Sodium 40 mg PO DAILY 06/08/19 Ondansetron [Ondansetron Odt] 4 mg PO Q6H #20 tab 04/13/20
--- NOTE | 2020-04-13 12:46 | CT ---
EXAM DESCRIPTION: Abdomen/Pelvis w/Contrast CLINICAL HISTORY: lower abdominal pain with diarrhea. COMPARISON: None. TECHNIQUE: Postcontrast CT images of the abdomen and pelvis are obtained using standard imaging protocol. This exam was performed according to our departmental dose-optimization program, which includes automated exposure control, adjustment of the mA and/or kV according to patient size and/or use of iterative reconstruction technique . FINDINGS: Visualized lung bases show mild interstitial thickening in the dependent portion of the lower lobes likely representing atelectasis although developing infiltrates can have a similar appearance. Liver, spleen, pancreas, adrenal glands, and gallbladder are unremarkable. Moderate vascular calcifications are seen. No nephrolithiasis. No ureteral calcification or obstruction. Exophytic cortical cyst of the anterior upper pole left kidney measures 17 mm. Urinary bladder is unremarkable. Surgical absence of the uterus. The ovaries are not identified. The appendix is not identified. Small hiatal hernia. Stomach is poorly distended. No small bowel obstruction or bowel wall thickening Mild scattered diverticuli of the transverse colon without associated inflammatory changes or fluid collections. Small fat-containing umbilical hernia with small right greater than left fat-containing inguinal hernias. No pathologic lymphadenopathy. No free intraperitoneal air or abnormal drainable fluid collections. Moderate degenerative changes of the spine. IMPRESSION: No acute findings on CT of the abdomen and pelvis. Mild colon diverticulosis without CT evidence of diverticulitis. Electronically signed by: Rigo Peter MD 04/13/2020 12:45 PM CDT
[2020-04-13 13:43] VITALS: O2SAT 95
[2020-04-13 16:23] VITALS: BP 129/72; TEMP 97.6
== END 2020-04-13 14:00 | disposition home or self-care (01) ==
LOC: ER 10:18
DX: K52.9 Noninfective gastroenteritis and colitis, unspecified (principal); E86.0 Dehydration; K57.30 Diverticulosis of large intestine without perforation or abscess without bleeding; I45.10 Unspecified right bundle-branch block; I51.7 Cardiomegaly; E11.9 Type 2 diabetes mellitus without complications; K21.9 Gastro-esophageal reflux disease without esophagitis; I10 Essential (primary) hypertension; Z90.49 Acquired absence of other specified parts of digestive tract; Z79.899 Other long term (current) drug therapy; Z88.8 Allergy status to other drugs, medicaments and biological substances
CPT/HCPCS: 36415; 71045; 74177; 80048; 80076; 81001; 82550; 82553; 82948; 83690; 83880; 84484; 85025; 85610; 85730; 93005; 94760; A4216; J2405; J7030

== ENCOUNTER → 2020-07-26 | Outpatient (CLI) | payer OTHER, MEDICAID ==
--- NOTE | 2020-07-28 13:11 | US ---
EXAM DESCRIPTION: Renal (accession [id number]), Renal Arteries (accession [id number]): Ultrasound. CLINICAL HISTORY: LEFT FLANK PN COMPARISON: Two-dimensional ultrasound evaluation of the bilateral kidneys on the same visit. TECHNIQUE: Transcutaneous scanning: Grayscale mode. Doppler peak systolic and end-diastolic velocities/measurements of the abdominal aorta, renal arteries, intra renal arteries, and renal veins. FINDINGS: Right kidney 9.3 x 4.5 x 4.5 cm: volume 98.4 ml. Cortical echogenicity . Normal; 11 mm cortical thickness. No hydronephrosis, no large calcifications. Lobulated contour of the kidney with no perinephric fluid. Proximal ureter not visualized. Left kidney 9.7 x 3.5 x 3.6 cm: volume 65.3 ml. Cortical echogenicity is normal ; 11 mm cortical thickness. 2.1 cm cyst upper pole. No hydronephrosis or large calcifications. Lobulated contour of the kidney with no perinephric fluid. Proximal ureter not visualized. Distal ureters not visualized bilaterally. Urinary bladder was visualized. 5 cm volume. Aorta diameter (cm): Proximal: 1.9 Mid: 1.7 Distal: 1.7 GREGORIO- Right: Not measured Left: Not measured. PSV (cm/sec): Aorta: 84 Right renal artery: 53 Left renal artery: 86 EDV (cm/sec): Right renal artery: 15 Left renal artery: 10 Renal veins: Visualized. IVC: Visualized. Intrarenal RI's: Proximal segmental Right: 0.73 Left: 0.68. Mid segmental Right: 0.65 Left: 0.74. Distal segmental Right: 0.82 Left: 1.0. Renal Aortic Ratio: Right RAR = RRA PSV/Aortic PSV = 53 /84= 0.6. Left RAR = LRA PSV/Aortic PSV = 86/84 = 1.0. End Diastolic Ratio: Right EDR = RRA EDV/RRA PSV = 15/53 = 0.28. Left EDR = LRA EDV/LRA PSV = 10/86= 0.12. Other: None. IMPRESSION: 1. Bilateral cortical thinning with normal cortical echogenicity. Left kidney is smaller than the right kidney. 2.1 cm cyst upper pole left kidney. No echogenic stones, no hydronephrosis, and no perirenal fluid bilaterally. Urinary bladder was visualized the patient had recently voided. No abdominal aortic aneurysm. 2. Bilateral renal aortic ratios indicate NO evidence for significant renal artery stenosis. 3. Bilateral in diastolic ratios and measurements of the resistive indices of the segmental arteries are consistent with significant renovascular parenchymal disease. Electronically signed by: Lane Zhou MD 07/28/2020 1:09 PM [facility]
== END ==
LOC: US 09:58
PROVIDERS: ATTEND Emergency Medicine
DX: N28.9 Disorder of kidney and ureter, unspecified (principal); N28.1 Cyst of kidney, acquired; I77.9 Disorder of arteries and arterioles, unspecified